=== PATIENT | male | born 1975 | race Caucasian/White ===

== ENCOUNTER 2018-12-31 11:08 | Emergency (ER) | payer BC ==
[2018-12-31 11:15] VITALS: BP 137/61; PULSE 77; TEMP 98.1; BMI 33.1
--- NOTE | 2018-12-31 11:38 | PDOC ---
History of Present Illness - General Chief Complaint: Rash Stated Complaint: POISION MARY Time Seen by Provider: 12/31/18 11:09 History Source: Patient Exam Limitations: No Limitations - History of Present Illness Initial Comments: 12/31/18 11:32 43y M presents with itchy rash. Pt was last doing yard work 2 days ago wearing gardening gloves, today he noticed an itchy rash/vesicle on side of his thumb on his right hand. Denies any difficulty breathing, itchiness anywhere else, swelling. pt has not yet taken any other meds. Past History - Past Medical History Allergies/Adverse Reactions: Allergies Allergy/AdvReac Type Severity Reaction Status Date / Time No Known Allergies Allergy Verified 12/31/18 11:09 Home Medications: Ambulatory Orders Hydrocortisone 0.5% Cream [Hytone 0.5% Cream -] 1 applic TP BID #1 tube predniSONE [Deltasone -] 40 mg PO DAILY #8 tablet 12/31/18 Anemia: No Asthma: Yes Cancer: No Cardiac Disorders: No CVA: No COPD: No CHF: No Dementia: No Diabetes: No GI Disorders: Yes (acid reflux) Disorders: No HTN: No Hypercholesterolemia: No Liver Disease: No Seizures: No Thyroid Disease: No - Surgical History Abdominal Surgery: No Appendectomy: No Cardiac Surgery: No Cholecystectomy: No Lung Surgery: No Neurologic Surgery: No Orthopedic Surgery: No - Suicide/Smoking/Psychosocial Hx Smoking Status: No Smoking History: Never smoked Have you smoked in the past 12 months: No Number of Cigarettes Smoked Daily: 0 Information on smoking cessation initiated: No Hx Alcohol Use: No Drug/Substance Use Hx: No Hx Substance Use Treatment: No Review of Systems - Review of Systems Able to Perform ROS?: Yes Comments:: 12/31/18 11:38 Integumetry: itchy rash w vesicle, swelling Genearl: denies fever Resp: denies sob *Physical Exam - Vital Signs Last Vital Signs Temp Pulse Resp BP Pulse Ox 98.1 F 77 20 137/61 100 12/31/18 11:09 12/31/18 11:09 12/31/18 11:09 12/31/18 11:09 12/31/18 11:09 - Physical Exam Comments: 12/31/18 11:38 Skin: radial aspect of R thumb - singular vesicle with mild erythema, no induration, no flcutuance Medical Decision Making - Medical Decision Making 12/31/18 11:39 possibel poison mary exposure no systemic complaints will give hydrocoritsone topical pt has history of very severel alelrgic reactions - but this does not appear to be - will give prednisone rx at pharmacy in case sypmtmos are exacerbated. I discussed the physical exam findings, ancillary test results and final diagnoses with the patient. I answered all of the patient's questions. The patient was satisfied with the care received and felt comfortable with the discharge plan and treatment plan. The patient will call their primary care physician within 24 hours to arrange follow-up and will return to the Emergency Department with any new, persistent or worsening symptoms. *DC/Admit/Observation/Transfer Diagnosis at time of Disposition: Poison mary dermatitis - Discharge Dispostion Disposition: HOME Condition at time of disposition: Stable Decision to Admit order: No - Prescriptions Prescriptions: Hydrocortisone 0.5% Cream [Hytone 0.5% Cream -] 1 applic TP BID #1 tube predniSONE [Deltasone -] 40 mg PO DAILY #8 tablet - Referrals - Patient Instructions Printed Discharge Instructions: DI for Poison Mary Allergy Additional Instructions: Return to the emergency department immediately with ANY new, persistent or worsening symptoms. You likely have a very mild poison mary exposure. If you have worsening symtoms, s welling, or spreading symptoms, you can take the prednisone. mary benadryl for the itching. - Post Discharge Activity
== END 2018-12-31 11:45 | disposition home or self-care (01) ==
LOC: FER 11:08
DX: L23.7 Allergic contact dermatitis due to plants, except food (principal)
CPT/HCPCS: 99281-25

== ENCOUNTER 2021-04-08 21:41 | Emergency (ER) | payer BC, OTHER ==
[2021-04-08 21:54] VITALS: BP 157/99; PULSE 88; TEMP 98.8; BMI 33.4
[2021-04-08] MEDS ORDERED: IBUPROFEN 600 MG TABLET (FP) PO ONE ×2 (22:40→22:45)
== END 2021-04-08 22:58 | disposition home or self-care (01) ==
LOC: FER 21:41
DX: S43.401A Unspecified sprain of right shoulder joint, initial encounter (principal)
CPT/HCPCS: 73030-TC-RT-FY; 99283-25

== ENCOUNTER 2021-12-17 08:41 | Emergency (ER) | payer BC, OTHER ==
[2021-12-17 08:50] VITALS: BP 144/90; PULSE 103; TEMP 99.6; BMI 33.4
[2021-12-17] MEDS ORDERED: ACETAMINOPHEN 325 MG TABLET (FP) PO ONE (09:12)
[2021-12-17] MEDS ORDERED: ACETAMINOPHEN 325 MG TABLET (FP) ONE (09:35)
[2021-12-18 18:08] LABS: SARS-CoV-2 NAA Not Detected (Not Detected)
== END 2021-12-17 09:50 | disposition home or self-care (01) ==
LOC: FER 08:41
DX: B34.9 Viral infection, unspecified (principal)
CPT/HCPCS: 99283-25; C9803-CS; U0003; U0005

== ENCOUNTER 2022-07-08 14:55 | Emergency (ER) | payer BC ==
[2022-07-08 15:13] VITALS: BP 148/97; PULSE 78; RESP 16; TEMP 98.7; BMI 33.4
[2022-07-08] MEDS ORDERED: AMOX TR/POT CLAV 875MG/125MG TABLETS (FP) PO ONE (15:16)
[2022-07-08] MEDS ORDERED: AMOX TR/POT CLAV 875MG/125MG TABLETS (FP) ONE (15:18)
== END 2022-07-08 15:23 | disposition home or self-care (01) ==
LOC: FER 14:55
DX: H00.033 Abscess of eyelid right eye, unspecified eyelid (principal); H00.012 Hordeolum externum right lower eyelid
CPT/HCPCS: 99283-25

== ENCOUNTER 2022-11-27 10:15 | Emergency (ER) | payer BC, OTHER ==
[2022-11-27] MEDS ORDERED: DOXYCYCLINE HYCLATE 100 MG CAPSULE PO ONE ×2 (10:27→10:31)
[2022-11-27 10:40] VITALS: BP 142/91; PULSE 93; RESP 20; TEMP 99.1; BMI 30.4
== END 2022-11-27 11:03 | disposition home or self-care (01) ==
LOC: FER 10:15
DX: S20.461A Insect bite (nonvenomous) of right back wall of thorax, initial encounter (principal); W57.XXXA Bitten or stung by nonvenomous insect and other nonvenomous arthropods, initial encounter
CPT/HCPCS: 99283-25

== ENCOUNTER 2023-09-17 12:12 | Emergency (ER) | payer BC ==
[2023-09-17 12:27] VITALS: BP 143/71; PULSE 89; RESP 20; TEMP 98.2; BMI 30.4
== END 2023-09-17 13:49 | disposition home or self-care (01) ==
LOC: FER 12:12
DX: R05.9 Cough, unspecified (principal); R53.1 Weakness; M79.10 Myalgia, unspecified site; U07.1 COVID-19
CPT/HCPCS: 0241U-QW; 99283-25

== ENCOUNTER 2025-03-17 11:34 | Emergency (ER) | payer BC ==
[2025-03-17 12:05] VITALS: BP 129/88; PULSE 79; RESP 20; TEMP 99; BMI 32.6
[2025-03-17] MEDS: DOXYCYCLINE HYCLATE 100 MG CAPSULE PO ONE (12:30)
[2025-03-17] MEDS ORDERED: DOXYCYCLINE HYCLATE 100 MG CAPSULE PO ONE (12:34)
[2025-03-17 12:39] LABS: ABSOLUTE IMMATURE GRANULOCYTES 0.02 x10^3/uL (0.0-0.031); BASOPHILS # 0.03 x10^3/uL (0.01-0.08); EOSINOPHIL % 4.9 % (0.8-7.0); HEMATOCRIT 45.7 % (40.1-51.0); HEMOGLOBIN 16.1 g/dL (13.7-17.5); MCHC 35.2 g/dl (32.3-36.5); MEAN CELL VOLUME 85.4 fl (79.0-92.2); MEAN PLT VOLUME 9.7 fl (9.4-12.4); MONOCYTE # 0.36 x10^3/uL (0.30-0.82); MONOCYTE % 8.8 % (5.3-12.2); PLATELET COUNT 164 x10^3/uL (163-337)
[2025-03-17 12:56] LABS: ALBUMIN 4.9 g/dl (3.4-5.0); BILIRUBIN,TOTAL 0.8 mg/dl (0.2-1); CALCIUM 9.6 mg/dl (8.5-10.1); CREATININE 0.9 mg/dl (0.6-1.3); POTASSIUM 4.2 mmol/L (3.5-5.1); TOT PROT 7.3 g/dl (6.4-8.2)
[2025-03-17 13:29] LABS: ERYTHROCYTE SEDIMENTATION RATE 18 mm/hr (0-20)
== END 2025-03-17 12:42 | disposition home or self-care (01) ==
LOC: FER 11:34
DX: S80.862A Insect bite (nonvenomous), left lower leg, initial encounter (principal); R11.0 Nausea; R21 Rash and other nonspecific skin eruption; R05.9 Cough, unspecified; R61 Generalized hyperhidrosis; R06.02 Shortness of breath; W57.XXXA Bitten or stung by nonvenomous insect and other nonvenomous arthropods, initial encounter; Y92.39 Other specified sports and athletic area as the place of occurrence of the external cause; Y93.53 Activity, golf
CPT/HCPCS: 0241U-QW; 36415; 80053; 85025; 85651; 86140; 86618; 99283-25